=== PATIENT | male | born 1980 | race Caucasian/White ===

== ENCOUNTER 2024-10-27 21:56 | Inpatient (IN) | payer BC ==
[~2024-10-27] VITALS: Ht 175.3 cm; Wt 70.0 kg
[2024-10-27 22:36] LABS: HEMOGLOBIN 12.5 g/dL (13.5-17.5); MONOCYTES # (AUTO) 0.4 K/uL (0.1-1.0)
[2024-10-27 22:39] LABS: BASOPHILS % (AUTO) 0.8 % (0.0-2.0); EOSINOPHILS % (AUTO) 0.9 % (1.0-6.0); HEMATOCRIT 38.4 % (41-53); LYMPHOCYTES # (AUTO) 0.7 K/uL (1.0-4.8); LYMPHOCYTES % (AUTO) 12.9 % (22.0-44.0); MEAN CORPUSCULAR HEMOGLOBIN 30.1 pg (26.0-34.0); MEAN CORPUSCULAR HGB CONC 32.5 G/dL (31.0-37.0); MEAN CORPUSCULAR VOLUME 93 fL (80-100); NEUTROPHILS # (AUTO) 4.1 K/uL (1.8-7.7); NEUTROPHILS % (AUTO) 77.4 % (40.0-70.0); PLATELET COUNT (AUTO) 155 K/uL (150-450); RED BLOOD CELL COUNT(AUTO) 4.15 MIL/uL (4.50-5.90); RED CELL DISTRIBUTION WIDTH 15.4 % (11.5-14.5); WHITE BLOOD COUNT (AUTO) 5.2 K/uL (4.5-11.0)
[2024-10-27 22:43] LABS: ANION GAP 15 mmol/L (8-16); CALCIUM, TOTAL 8.9 mg/dL (8.8-10.5); CARBON DIOXIDE 23 mmol/L (22-29); CHLORIDE 98 mmol/L (98-107); CREATININE 0.98 mg/dL (0.60-1.30); GLOMERULAR FILTR. RATE CALC > 60 mL/min (>60); GLUCOSE,RANDOM 129 mg/dL (70-110); POTASSIUM 3.7 mmol/L (3.5-5.1); SODIUM SERUM 136 mmol/L (136-145); UREA NITROGEN, BLOOD 7 mg/dL (7-18)
[2024-10-27] MEDS: ChlordiazePOXIDE HCL 25 MG CAPSULE PO ONE (22:44)
[2024-10-27] MEDS: MAGNESIUM SULFATE 2 GM, MVI, ADULT NO.1 WITH VIT K 10 ML, THIAMINE 100 MG, FOLIC ACID 1... IV ONE (22:45)
[2024-10-27] MEDS: LevETIRAcetam 750 MG in DEXTROSE 5%-WATER 100 ML IV ONE (22:45)
[2024-10-27 22:55] LABS: ALCOHOL, BLOOD (SERUM) < 3 mg/dL (0-10)
[2024-10-27] MEDS ORDERED: ACETAMINOPHEN 325 MG TABLET PO PRN (23:30)
[2024-10-27] MEDS ORDERED: MAGNESIUM HYDROXIDE SUSPENSION 30 ML UDCUP PO PRN (23:30)
[2024-10-27] MEDS ORDERED: 0.9% SODIUM CHLORIDE 10 ML SYRINGE IVP PRN (23:30)
[2024-10-27] MEDS: DOCUSATE SODIUM 100 MG CAPSULE PO SCH (23:30)
[2024-10-27] MEDS ORDERED: ChlordiazePOXIDE HCL 25 MG CAPSULE PO PRN (23:30)
[2024-10-28] MEDS: LevETIRAcetam 500 MG TABLET PO SCH ×2 (00:13→20:54)
[2024-10-28] MEDS: ONDANSETRON HCL 4 MG/2 ML VIAL IVP PRN (00:38)
[2024-10-28] MEDS ORDERED: APIX5TAB PO (00:43)
[2024-10-28 05:51] LABS: BASOPHILS % (AUTO) 0.6 % (0.0-2.0); EOSINOPHILS % (AUTO) 0.2 % (1.0-6.0); HEMATOCRIT 38.8 % (41-53); HEMOGLOBIN 12.9 g/dL (13.5-17.5); LYMPHOCYTES # (AUTO) 0.6 K/uL (1.0-4.8); LYMPHOCYTES % (AUTO) 8.1 % (22.0-44.0); MEAN CORPUSCULAR HEMOGLOBIN 30.7 pg (26.0-34.0); MEAN CORPUSCULAR HGB CONC 33.3 G/dL (31.0-37.0); MEAN CORPUSCULAR VOLUME 92 fL (80-100); MONOCYTES # (AUTO) 0.7 K/uL (0.1-1.0); MONOCYTES % (AUTO) 8.3 % (2.0-9.0); NEUTROPHILS # (AUTO) 6.5 K/uL (1.8-7.7); NEUTROPHILS % (AUTO) 82.8 % (40.0-70.0); PLATELET COUNT (AUTO) 160 K/uL (150-450); RED BLOOD CELL COUNT(AUTO) 4.21 MIL/uL (4.50-5.90); RED CELL DISTRIBUTION WIDTH 15.3 % (11.5-14.5); WHITE BLOOD COUNT (AUTO) 7.8 K/uL (4.5-11.0)
[2024-10-28 05:57] LABS: ANION GAP 12 mmol/L (8-16); CALCIUM, TOTAL 8.8 mg/dL (8.8-10.5); CARBON DIOXIDE 24 mmol/L (22-29); CHLORIDE 98 mmol/L (98-107); CREATININE 0.67 mg/dL (0.60-1.30); GLOMERULAR FILTR. RATE CALC > 60 mL/min (>60); GLUCOSE,RANDOM 101 mg/dL (70-110); POTASSIUM 3.4 mmol/L (3.5-5.1); SODIUM SERUM 134 mmol/L (136-145); UREA NITROGEN, BLOOD 6 mg/dL (7-18)
[2024-10-28] MEDS ORDERED: ChlordiazePOXIDE HCL 25 MG CAPSULE PO PRN (07:00)
[2024-10-28] MEDS: HEPARIN SODIUM,PORCINE 5,000 UNITS/ML VIAL SQ SCH (11:01)
[2024-10-28] MEDS: ChlordiazePOXIDE HCL 25 MG CAPSULE PO SCH (11:01)
[2024-10-28] MEDS: PANTOPRAZOLE SODIUM 40 MG/VIAL IVP SCH (11:01)
[2024-10-28] MEDS: OxyCODONE HCL/ACETAMINOPHEN 5-325 MG TABLET PO PRN (12:22)
[2024-10-28 15:37] VITALS: BP 152/95; PULSE 84; RESP 18; TEMP 98.7; O2SAT 97
[2024-10-28] MEDS: POTASSIUM CHLORIDE 20 MEQ ER TABLET PO ONE (16:23)
[2024-10-28 20:06] VITALS: BP 142/99; PULSE 85; RESP 18; TEMP 97.9; O2SAT 97
[2024-10-29] VITALS: BP 137/91; PULSE 85; RESP 20; TEMP 98.3; O2SAT 97
[2024-10-29 04:32] VITALS: BP 132/88; PULSE 76; RESP 20; TEMP 98.3; O2SAT 97
[2024-10-29] MEDS: OxyCODONE HCL/ACETAMINOPHEN 5-325 MG TABLET PO PRN (04:35)
[2024-10-29 08:41] VITALS: BP 118/91; PULSE 94; RESP 18; TEMP 98.1; O2SAT 98
[2024-10-29] MEDS ORDERED: LIDO1ADH83 TP (09:53)
[2024-10-29] MEDS ORDERED: PERCT PO ×2 (09:53→10:02)
[2024-10-29] MEDS ORDERED: CHLO25CA5 PO ×2 (09:53→10:02)
[2024-10-29] MEDS ORDERED: LEVE-71 PO (09:53)
[2024-10-29 11:35] VITALS: BP 144/99; PULSE 82; RESP 19; TEMP 98; O2SAT 100
[2024-10-30] MEDS ORDERED: ChlordiazePOXIDE HCL 10 MG CAPSULE PO PRN (07:00)
[2024-10-30] MEDS ORDERED: ChlordiazePOXIDE HCL 10 MG CAPSULE PO SCH (09:00)
[2024-10-31] MEDS ORDERED: ChlordiazePOXIDE HCL 10 MG CAPSULE PO PRN (07:00)
== END 2024-10-29 12:51 | disposition home or self-care (01) | DRG 101 ==
LOC: EMS 21:56 → EDH 23:21 → UNDOADMIN 10-28 01:26 → 5S 10-28 15:06 → EDH 10-28 15:06
PROVIDERS: ADMIT Internal Medicine; ATTEND Internal Medicine
DX: G40.909 Epilepsy, unspecified, not intractable, without status epilepticus (principal); F10.939 Alcohol use, unspecified with withdrawal, unspecified; D64.9 Anemia, unspecified
CPT/HCPCS: 70450; 71045; 80048; 85025; 99285; G0378; G0480; J0712; J1644; J2405; J2470; J3411; J3475; J3490; J7030; J7060; 36415-L1; 36415-TC